=== PATIENT | male | born 1950 ===

== ENCOUNTER 2017-08-07 07:11 | Day surgery (SDC) | payer MEDICARE ==
[2017-08-07 08:17] VITALS: O2SAT 100
--- NOTE | 2017-08-07 10:25 | CP.SDSHP ---
Same Day Surgery H & P - History Proposed Procedure: endoscopy Pre-Op Diagnosis: reflux, epig pain - Previous Medical/Surgical History Cardiac: Hypertension Endocrine/Metabolic: Diabetes - Allergies Allergies: Allergies No Known Allergies Allergy (Verified 04/04/14 10:48) - Physical Exam Vital Signs: Vital Signs 08/07/17 07:45 Temperature 98.6 F Pulse Rate 67 Respiratory 19 Rate Blood Pressure 141/71 O2 Sat by Pulse 100 Oximetry Mental Status: Alert & Oriented x3 Neuro: WNL Heart: WNL Lungs: WNL GI: WNL - {Optional Preform as Required} Abdomen: WNL - Impression Impression: epig pain, reflux Pt. Evaluated Today:Candidate for Anesthesia & Procedure: Yes - Date & Time Date: 08/07/17 Time: 10:25 Short Stay Discharge - Short Stay Discharge Admitting Diagnosis/Reason for Visit: ESOPHAGEAL REFLUX Disposition: HOME/ ROUTINE Referrals: Dona Raphael MD [Primary Care Provider] -
[2017-08-07] MEDS ORDERED: Lactated Ringer's 500 ML IV ONE (10:30)
[2017-08-07] MEDS ORDERED: Propofol 10 mg/ml Inj (20 ML) ONE (10:33)
[2017-08-07] MEDS ORDERED: Lidocaine Hydrochloride 5 ML INJ ONE (10:33)
[2017-08-07 11:22] VITALS: TEMP 99.6
[2017-08-07 11:24] VITALS: RESP 13
[2017-08-07 12:24] VITALS: BP 141/83; PULSE 69
== END 2017-08-07 12:00 | disposition home or self-care (01) ==
LOC: C.ENDO 07:11
PROVIDERS: ATTEND Internal Medicine Gastroenterology
DX: K21.9 Gastro-esophageal reflux disease without esophagitis (principal); K29.70 Gastritis, unspecified, without bleeding; I10 Essential (primary) hypertension; E11.9 Type 2 diabetes mellitus without complications
CPT/HCPCS: 43239; 82948; 88305; 88342; J2704; J7120

== ENCOUNTER 2018-07-13 07:51 | Outpatient (CLI) | payer MEDICARE | END 2018-07-13 07:52 | disposition home or self-care (01) | LOC: C.USIC 07:51 ==

== ENCOUNTER 2018-09-16 09:03 | Outpatient (CLI) | payer MEDICARE | END 2018-09-16 09:04 | disposition home or self-care (01) | LOC: C.VASC 09:04 | DX: Z00.01 Encounter for general adult medical examination with abnormal findings (principal); I10 Essential (primary) hypertension; E11.9 Type 2 diabetes mellitus without complications; K80.00 Calculus of gallbladder with acute cholecystitis without obstruction ==